=== PATIENT | male | born 1995 | race African-American/Black ===

== ENCOUNTER 2025-02-13 07:55 | Emergency (ER) | payer OTHER ==
[~2025-02-13] VITALS: Ht 175.3 cm; Wt 97.0 kg
[2025-02-13] MEDS ORDERED: ACET-1349 PO (08:09)
[2025-02-13] MEDS: KETOROLAC 30 MG/ML 1 ML VIAL IV ONE (08:47)
[2025-02-13 09:13] LABS: BASO # 0.0 10^3/uL (0.0-0.2); BASO % 0.3 % (0.0-1.0); EOS # 0.0 10^3/uL (0.0-0.5); EOS % 0.4 % (0.0-3.0); LYMPH # 1.0 10^3/uL (1.5-5.0); LYMPH % 9.6 % (24.0-44.0); MONO # 1.4 10^3/uL (0.0-0.8); MONO % 13.8 % (2.0-8.0); NEUTROPHILS # 7.8 10^3/uL (1.5-8.5); NEUTROPHILS % 75.6 % (36.0-66.0); PLATELET COUNT, AUTOMATED 309 10^3/uL (150-450)
[2025-02-13 09:26] LABS: D-DIMER QUANT < 0.27 ug/mL (<0.5); INR 1.04
[2025-02-13 09:27] LABS: ALT/SGPT 58 U/L (7.0-40); AST/SGOT 44 U/L (<34); CALCIUM LEVEL 9.5 MG/DL (8.5-10.1); CARBON DIOXIDE LEVEL 24 MMOL/L (20-31); CHLORIDE LEVEL 101 MMOL/L (98-107); CK-MB VALUE MASS < 1.0 NG/ML (<3.6); CPK CREATINE PHOSPHOKINASE 172 U/L (46-171); CREATININE FOR GFR 1.04 MG/DL (0.70-1.30); GLOMERULAR FILTRATION RATE > 90.0 (>60); POTASSIUM SERUM 3.9 MMOL/L (3.5-5.1); SODIUM LEVEL 138 MMOL/L (136-145)
[2025-02-13] MEDS: NS (Normal Saline) 0.9% 1,000 ML IV ONE (10:20)
[2025-02-13] MEDS ORDERED: ISOVUE-370 76% 100 ML VIAL As Ordered ONE (10:25)
[2025-02-13 11:01] VITALS: TEMP 97.9
[2025-02-13 12:17] LABS: CK-MB VALUE MASS < 1.0 NG/ML (<3.6)
[2025-02-13 12:18] LABS: CPK CREATINE PHOSPHOKINASE 139 U/L (46-171)
[2025-02-13 13:15] VITALS: BP 144/78; O2SAT 98
[2025-02-13] MEDS ORDERED: NAPR-837 PO (13:21)
== END 2025-02-13 13:28 | disposition home or self-care (01) ==
LOC: M ED 07:55
DX: R07.89 Other chest pain (principal); Z88.5 Allergy status to narcotic agent
CPT/HCPCS: 71045; 71275; 80048; 80076; 82550; 82553; 84484; 85025; 85379; 85610; 85730; 93005; 93041; 96361; 96374; 99285; J1885; Q9967